=== PATIENT | female | born 1950 | race African-American/Black ===

== ENCOUNTER 2018-11-16 07:02 | Observation (INO) ==
[2018-11-16] MEDS ORDERED: ENOXAPARIN 100 MG/ML SYRINGE SUBCUT STA (07:38)
[2018-11-16] MEDS ORDERED: ASPIRIN 325 MG TABLET PO STA (07:38)
[2018-11-16 08:01] LABS: Basophils # 0.1 10*3/uL (0.0-0.2); Basophils % 0.6 % (0.0-0.8); Eosinophils # 0.1 10*3/uL (0.0-0.87); Eosinophils % 0.8 % (0.00-10.9); Hematocrit 36.3 VOL% (35.7-47.0); Hemoglobin 11.8 GM/DL (12.0-16.0); Immature Granulocytes % 0.6 %; Immature Granulocytes Absolute 0.05 #; Lymphocytes # 2.3 10*3/uL (1.4-4.0); Lymphocytes % 26.9 % (21.3-54.2); Mean Corpuscular HGB Conc 32.5 GM/DL (32-36); Mean Platelet Volume 10.6 FL (9.6-12.0); Monocytes % 7.6 % (1.7-12.7); Neutrophils % 63.5 % (38.7-73.9); Platelet Count 263 T/CUMM (130-400); Red Blood Count 3.78 MC/CUMM (3.8-5.5); Red Cell Distribution Width 12.8 % (9.3-17.3); White Blood Count 8.6 T/CUMM (4-12)
[2018-11-16 08:31] LABS: Albumin 3.6 G/DL (3.4-5.0); Bilirubin,Total 0.7 MG/DL (0.2-1.0); Calcium 9.4 MG/DL (8.5-10.1); Osmolality,Calculated 279.7 MOS/KG (273-304); Total Protein 7.7 G/DL (6.4-8.3)
[2018-11-16 08:46] LABS: Hypochromasia 1+; Platelet Estimate Adequate
[2018-11-16] MEDS ORDERED: ACETAMINOPHEN 325 MG TABLET PO PRN (08:47)
[2018-11-16] MEDS ORDERED: ONDANSETRON 4 MG/2 ML VIAL IV PRN (08:47)
[2018-11-16] MEDS ORDERED: BISACODYL 5 MG TABLET PO PRN (08:47)
[2018-11-16] MEDS ORDERED: MORPHINE 4 MG/1 ML VIAL IV PRN (08:47)
[2018-11-16] MEDS ORDERED: ENOXAPARIN 40 MG/0.4 ML SYRINGE SUBCUT SCH (09:00)
[2018-11-16 09:20] LABS: Risk Ratio 4.66; VLDL CHOLESTEROL 24.4 MG/DL
[2018-11-16] MEDS: SODIUM CHLORIDE 0.45% 1,000 ML IV SCH (10:10)
[2018-11-16] MEDS: METOPROLOL TARTRATE 25 MG TABLET PO SCH ×2 (10:11→22:53)
[2018-11-16] MEDS: PANTOPRAZOLE 40 MG TABLET PO SCH (10:11)
[2018-11-16 11:51] LABS: Barbiturates Screen,Urine Negative (Negative); Benzodiazepines Screen,Urine Negative (Negative); Cannabinoid Screen,Urine Negative (Negative); Opiate Screen,Urine Negative (Negative); Phencyclidine Screen,Urine Negative (Negative)
[2018-11-16] MEDS: amLODIPine 10 MG TABLET PO SCH (14:01)
[2018-11-16] MEDS: ROSUVASTATIN 20 MG TABLET PO SCH (14:59)
[2018-11-16] MEDS ORDERED: CLORAZEPATE 3.75 MG TABLET PO ONE (22:21)
[2018-11-17] MEDS: SODIUM CHLORIDE 0.45% 1,000 ML IV SCH ×3 (02:50→15:56)
[2018-11-17 04:32] LABS: Basophils % 0.5 % (0.0-0.8); Eosinophils # 0.1 10*3/uL (0.0-0.87); Eosinophils % 1.8 % (0.00-10.9); Hematocrit 32.2 VOL% (35.7-47.0); Hemoglobin 10.3 GM/DL (12.0-16.0); Immature Granulocytes % 0.4 %; Immature Granulocytes Absolute 0.03 #; Lymphocytes # 2.8 10*3/uL (1.4-4.0); Lymphocytes % 36.4 % (21.3-54.2); Mean Corpuscular Volume 97.9 FL (87-102); Monocytes % 7.8 % (1.7-12.7); Neutrophils % 53.1 % (38.7-73.9); Platelet Count 246 T/CUMM (130-400); Red Blood Count 3.29 MC/CUMM (3.8-5.5); Red Cell Distribution Width 12.8 % (9.3-17.3); White Blood Count 7.7 T/CUMM (4-12)
[2018-11-17 05:01] LABS: Calcium 8.7 MG/DL (8.5-10.1); Osmolality,Calculated 284.3 MOS/KG (273-304)
[2018-11-17] MEDS ORDERED: POTASSIUM CHLORIDE 20 MEQ TABLET PO ONE ×2 (08:23→12:00)
[2018-11-17] MEDS: amLODIPine 10 MG TABLET PO SCH (11:51)
[2018-11-17] MEDS: METOPROLOL TARTRATE 25 MG TABLET PO SCH ×2 (11:51→21:47)
[2018-11-17] MEDS: ASPIRIN 325 MG TABLET PO SCH (11:51)
[2018-11-17] MEDS: ENOXAPARIN 40 MG/0.4 ML SYRINGE SUBCUT SCH (11:52)
[2018-11-17] MEDS: ROSUVASTATIN 20 MG TABLET PO SCH (11:52)
[2018-11-17] MEDS: PANTOPRAZOLE 40 MG TABLET PO SCH (11:52)
[2018-11-17] MEDS ORDERED: REGADENOSON 0.4 MG/5 ML SYRINGE IV ONE (13:41)
[2018-11-17] MEDS ORDERED: ZOLPIDEM 5 MG TABLET PO ONE (23:01)
[2018-11-18] MEDS: SODIUM CHLORIDE 0.45% 1,000 ML IV SCH (03:35)
[2018-11-18] MEDS: METOPROLOL TARTRATE 25 MG TABLET PO SCH (08:38)
[2018-11-18] MEDS: amLODIPine 10 MG TABLET PO SCH (08:38)
[2018-11-18] MEDS: ASPIRIN 325 MG TABLET PO SCH (08:39)
[2018-11-18] MEDS: ENOXAPARIN 40 MG/0.4 ML SYRINGE SUBCUT SCH (08:39)
[2018-11-18] MEDS: ROSUVASTATIN 20 MG TABLET PO SCH (08:39)
[2018-11-18] MEDS: PANTOPRAZOLE 40 MG TABLET PO SCH (08:39)
[2018-11-18] MEDS ORDERED: POTASSIUM CHLORIDE 20 MEQ TABLET PO ONE (09:14)
[2018-11-18 13:16] VITALS: BP 134/89
== END 2018-11-18 13:27 | disposition swing bed (61) ==
LOC: N.ED 07:02 → N.EDINP 07:02 → SUATTDRO 08:47 → N.EDINP 14:15 → N.TELES 14:57
PROVIDERS: ADMIT Internal Medicine; ATTEND Emergency Medicine

== ENCOUNTER 2019-02-01 05:25 | Inpatient (IN) ==
[2019-02-01] MEDS ORDERED: ceFAZolin 1,000 MG in SYRINGE 1 EACH IV ONE (06:00)
[2019-02-01] MEDS ORDERED: VANCOMYCIN INJ 1,000 MG in SODIUM CHLORIDE 0.9% 250 ML IV ONE (06:00)
[2019-02-01] MEDS ORDERED: VANCOMYCIN 1,000 MG VIAL ONE (06:20)
[2019-02-01] MEDS ORDERED: ceFAZolin 1,000 MG VIAL ONE (06:20)
[2019-02-01] MEDS ORDERED: FAMOTIDINE 20 MG TABLET PO ONE (06:25)
[2019-02-01] MEDS ORDERED: GABAPENTIN 400 MG CAPSULE PO ONE (06:25)
[2019-02-01] MEDS ORDERED: ACETAMINOPHEN 500 MG TABLET PO ONE (06:25)
[2019-02-01] MEDS ORDERED: LACTATED RINGERS 1,000 ML IV SCH (06:30)
[2019-02-01] MEDS ORDERED: ACETAMINOPHEN 500 MG TABLET ONE (06:31)
[2019-02-01] MEDS ORDERED: FAMOTIDINE 20 MG TABLET ONE (06:31)
[2019-02-01] MEDS ORDERED: GABAPENTIN 400 MG CAPSULE ONE (06:31)
[2019-02-01] MEDS ORDERED: ROPIVACAINE 0.5% 30 ML VIAL ONE (06:37)
[2019-02-01] MEDS ORDERED: DEXAMETHASONE 4 MG/1 ML VIAL ONE (06:37)
[2019-02-01] MEDS ORDERED: LIDOCAINE 1% 5 ML VIAL ONE (06:37)
[2019-02-01] MEDS ORDERED: LACTULOSE 20 GM/30 ML UDCUP PO PRN (07:07)
[2019-02-01] MEDS ORDERED: PROMETHAZINE 25 MG/1 ML VIAL IM PRN (07:07)
[2019-02-01] MEDS ORDERED: oxyCODONE/ACETAMINOPHEN 5-325 MG TABLET PO PRN (07:07)
[2019-02-01] MEDS ORDERED: ONDANSETRON 4 MG/2 ML VIAL IV PRN ×2 (07:07→08:51)
[2019-02-01] MEDS ORDERED: BISACODYL 10 MG SUPP RECTAL PRN (07:07)
[2019-02-01] MEDS ORDERED: IBUPROFEN 400 MG TABLET PO PRN (07:10)
[2019-02-01] MEDS ORDERED: LINACLOTIDE PO PRN (07:10)
[2019-02-01] MEDS ORDERED: diphenhydrAMINE CAP 25 MG CAPSULE PO PRN (07:10)
[2019-02-01] MEDS ORDERED: POLYETHYLENE GLYCOL POWDER 17 GM PACK PO PRN (07:10)
[2019-02-01] MEDS ORDERED: HYDROmorphone 2 MG/1 ML VIAL IV PRN (08:51)
[2019-02-01] MEDS ORDERED: BUPIVACAINE SPINAL 0.75% 2 ML AMP SPINAL ONE (08:53)
[2019-02-01] MEDS ORDERED: PROPOFOL 200 MG/20 ML VIAL IV ONE (08:53)
[2019-02-01] MEDS ORDERED: MIDAZOLAM 2 MG/2 ML VIAL ONE (08:54)
[2019-02-01] MEDS ORDERED: fentaNYL 100 MCG/2 ML VIAL ONE (08:54)
[2019-02-01] MEDS ORDERED: TRANEXAMIC ACID 1,000 MG/10 ML VIAL ONE (08:54)
[2019-02-01] MEDS ORDERED: SODIUM CHLORIDE 0.9% 100 ML IV ONE (08:54)
[2019-02-01] MEDS: amLODIPine 10 MG TABLET PO SCH (10:57)
[2019-02-01] MEDS: oxyCODONE/ACETAMINOPHEN 5-325 MG TABLET PO PRN ×3 (11:01→20:56)
[2019-02-01] MEDS: TRIAMTERENE/HCTZ 37.5-25 MG TABLET PO SCH (11:02)
[2019-02-01] MEDS: DOCUSATE SODIUM 100 MG CAPSULE PO SCH ×2 (11:03→20:56)
[2019-02-01] MEDS: ceFAZolin 2,000 MG in PREMIX 1 EACH IV SCH (15:36)
[2019-02-01] MEDS: FONDAPARINUX 2.5 MG/0.5 ML SYRINGE SUBCUT SCH (18:23)
[2019-02-01] MEDS: MORPHINE 4 MG/1 ML VIAL IV PRN (23:23)
[2019-02-02] MEDS: oxyCODONE/ACETAMINOPHEN 5-325 MG TABLET PO PRN ×5 (00:58→21:00)
[2019-02-02] MEDS: ceFAZolin 2,000 MG in PREMIX 1 EACH IV SCH (00:58)
[2019-02-02 06:05] LABS: Basophils % 0.1 % (0.0-0.8); Eosinophils % 0.1 % (0.00-10.9); Hematocrit 30.9 VOL% (35.7-47.0); Immature Granulocytes % 0.4 %; Immature Granulocytes Absolute 0.05 #; Lymphocytes # 1.8 10*3/uL (1.4-4.0); Lymphocytes % 15.2 % (21.3-54.2); Mean Corpuscular HGB Conc 32.4 GM/DL (32-36); Mean Corpuscular Volume 98.4 FL (87-102); Mean Platelet Volume 10.8 FL (9.6-12.0); Monocytes % 8.4 % (1.7-12.7); Neutrophils % 75.8 % (38.7-73.9); Platelet Count 262 T/CUMM (130-400); Red Blood Count 3.14 MC/CUMM (3.8-5.5); Red Cell Distribution Width 12.7 % (9.3-17.3); White Blood Count 11.9 T/CUMM (4-12)
[2019-02-02 06:20] LABS: Calcium 8.8 MG/DL (8.5-10.1); Osmolality,Calculated 275.7 MOS/KG (273-304)
[2019-02-02] MEDS: MORPHINE 4 MG/1 ML VIAL IV PRN (07:37)
[2019-02-02] MEDS: DOCUSATE SODIUM 100 MG CAPSULE PO SCH ×2 (09:36→21:00)
[2019-02-02] MEDS: amLODIPine 10 MG TABLET PO SCH (09:37)
[2019-02-02] MEDS: TRIAMTERENE/HCTZ 37.5-25 MG TABLET PO SCH (09:38)
[2019-02-02] MEDS: FONDAPARINUX 2.5 MG/0.5 ML SYRINGE SUBCUT SCH (18:39)
[2019-02-02] MEDS: TEMAZEPAM 7.5 MG CAPSULE PO PRN (21:03)
[2019-02-03] MEDS: oxyCODONE/ACETAMINOPHEN 5-325 MG TABLET PO PRN ×5 (02:12→21:19)
[2019-02-03] MEDS: TRIAMTERENE/HCTZ 37.5-25 MG TABLET PO SCH (08:28)
[2019-02-03] MEDS: DOCUSATE SODIUM 100 MG CAPSULE PO SCH ×2 (08:28→21:19)
[2019-02-03] MEDS: amLODIPine 10 MG TABLET PO SCH (08:28)
[2019-02-03] MEDS: MORPHINE 4 MG/1 ML VIAL IV PRN (08:29)
[2019-02-03] MEDS: diphenhydrAMINE CAP 25 MG CAPSULE PO PRN ×2 (12:55→21:19)
[2019-02-03] MEDS: MAGNESIUM HYDROXIDE SUSP 30 ML UDCUP PO PRN (12:56)
[2019-02-03] MEDS: FONDAPARINUX 2.5 MG/0.5 ML SYRINGE SUBCUT SCH (18:07)
[2019-02-03] MEDS: TEMAZEPAM 7.5 MG CAPSULE PO PRN (21:22)
[2019-02-04] MEDS: oxyCODONE/ACETAMINOPHEN 5-325 MG TABLET PO PRN ×4 (05:25→20:13)
[2019-02-04] MEDS: TRIAMTERENE/HCTZ 37.5-25 MG TABLET PO SCH (08:18)
[2019-02-04] MEDS: MAGNESIUM HYDROXIDE SUSP 30 ML UDCUP PO PRN (08:19)
[2019-02-04] MEDS: amLODIPine 10 MG TABLET PO SCH (08:19)
[2019-02-04] MEDS: DOCUSATE SODIUM 100 MG CAPSULE PO SCH ×2 (08:19→20:14)
[2019-02-04] MEDS: diphenhydrAMINE CAP 25 MG CAPSULE PO PRN (15:37)
[2019-02-04] MEDS: FONDAPARINUX 2.5 MG/0.5 ML SYRINGE SUBCUT SCH (17:53)
[2019-02-04] MEDS: TEMAZEPAM 7.5 MG CAPSULE PO PRN (20:14)
[2019-02-05] MEDS: oxyCODONE/ACETAMINOPHEN 5-325 MG TABLET PO PRN ×5 (01:30→21:53)
[2019-02-05] MEDS: amLODIPine 10 MG TABLET PO SCH (08:28)
[2019-02-05] MEDS: DOCUSATE SODIUM 100 MG CAPSULE PO SCH ×2 (08:28→21:17)
[2019-02-05] MEDS: TRIAMTERENE/HCTZ 37.5-25 MG TABLET PO SCH (08:29)
[2019-02-05] MEDS: MAGNESIUM HYDROXIDE SUSP 30 ML UDCUP PO PRN (08:29)
[2019-02-05] MEDS: FONDAPARINUX 2.5 MG/0.5 ML SYRINGE SUBCUT SCH (18:03)
[2019-02-05] MEDS: diphenhydrAMINE CAP 25 MG CAPSULE PO PRN (21:17)
[2019-02-05] MEDS: TEMAZEPAM 7.5 MG CAPSULE PO PRN (21:17)
[2019-02-06] MEDS: oxyCODONE/ACETAMINOPHEN 5-325 MG TABLET PO PRN ×2 (03:39→09:07)
[2019-02-06] MEDS: MAGNESIUM HYDROXIDE SUSP 30 ML UDCUP PO PRN (04:15)
[2019-02-06] MEDS: DOCUSATE SODIUM 100 MG CAPSULE PO SCH (09:07)
[2019-02-06] MEDS: amLODIPine 10 MG TABLET PO SCH (09:07)
[2019-02-06] MEDS: TRIAMTERENE/HCTZ 37.5-25 MG TABLET PO SCH (09:07)
[2019-02-06 10:06] LABS: Basophils % 0.4 % (0.0-0.8); Eosinophils # 0.2 10*3/uL (0.0-0.87); Eosinophils % 2.1 % (0.00-10.9); Hematocrit 30.3 VOL% (35.7-47.0); Hemoglobin 9.9 GM/DL (12.0-16.0); Immature Granulocytes % 0.6 %; Immature Granulocytes Absolute 0.06 #; Lymphocytes # 2.6 10*3/uL (1.4-4.0); Lymphocytes % 27.2 % (21.3-54.2); Mean Corpuscular HGB Conc 32.7 GM/DL (32-36); Mean Platelet Volume 9.5 FL (9.6-12.0); Monocytes % 7.3 % (1.7-12.7); Neutrophils % 62.4 % (38.7-73.9); Platelet Count 302 T/CUMM (130-400); Red Blood Count 3.06 MC/CUMM (3.8-5.5); Red Cell Distribution Width 12.8 % (9.3-17.3); White Blood Count 9.5 T/CUMM (4-12)
[2019-02-06 10:26] LABS: Calcium 9.2 MG/DL (8.5-10.1); Osmolality,Calculated 274.8 MOS/KG (273-304)
[2019-02-06 12:49] VITALS: BP 139/91
== END 2019-02-06 14:48 | disposition swing bed (61) | DRG 470 ==
LOC: N.OR 05:25 → N.SDSINP 05:27 → N.3E 09:40
PROVIDERS: ADMIT Orthopaedic Surgery; ATTEND Orthopaedic Surgery